=== PATIENT | male | born 1995 | race African-American/Black ===

== ENCOUNTER 2017-08-17 12:45 | Emergency (ER) | payer SELFPAY ==
[2017-08-17 12:53] VITALS: BP 130/63
[2017-08-17] MEDS ORDERED: NAPROXEN 250 MG TABLET PO ONE (13:21)
--- NOTE | 2017-08-17 13:28 | ER Document Report ---
ED General - General Chief Complaint: Toothache Stated Complaint: TOOTH PAIN Time Seen by Provider: 08/17/17 13:09 Notes: 21-year-old male here with complaints of right lower toothache ongoing for the past 1-2 months. The pain started when his filling fell out of his tooth he was eating something. He has not been taking anything for pain. He has not gone to see his dentist or any dentist about this in the 2 months that this is been going on. No fevers chills nausea vomiting. Still able to eat and drink without difficulty. No swelling. TRAVEL OUTSIDE OF THE [place] IN LAST 30 DAYS: No - Related Data Allergies/Adverse Reactions: No Known Allergies Allergy (Unverified 08/17/17 12:48) Past Medical History - Social History Smoking Status: Current Every Day Smoker Chew tobacco use (# tins/day): No Frequency of alcohol use: None Drug Abuse: None Family History: Reviewed & Not Pertinent Patient has suicidal ideation: No Patient has homicidal ideation: No Renal/ Medical History: Denies: Hx Peritoneal Dialysis Past Surgical History: Reports: Hx Orthopedic Surgery Review of Systems - Review of Systems Notes: See history of present illness for pertinent positive review of systems; otherwise all review of systems have been reviewed and are negative Physical Exam - Vital signs Vitals: Temp Pulse Resp BP Pulse Ox 97.9 F 52 L 16 130/63 H 100 08/17/17 12:49 08/17/17 12:49 08/17/17 12:49 08/17/17 12:49 08/17/17 12:49 - Notes Notes: PHYSICAL EXAMINATION: GENERAL: Well-appearing and in no acute distress. HEAD: Atraumatic, normocephalic. EYES: Pupils equal round and reactive to light, extraocular movements intact, sclera anicteric, conjunctiva are normal. ENT: nares patent, oropharynx clear without exudates. Moist mucous membranes. Tooth #29 with lingual half of tooth missing and dentin exposed without bleeding ; no lymphadenopathy or gingival swelling erythema induration fluctuance drainage NECK: Normal range of motion, supple without lymphadenopathy LUNGS: CTAB and equal. No wheezes rales or rhonchi. HEART: Regular rate and rhythm without murmurs EXTREMITIES: Normal range of motion, no pitting edema. No cyanosis. NEUROLOGICAL: Cranial nerves grossly intact. Normal sensory/motor exams. PSYCH: Normal mood, normal affect. SKIN: Warm, Dry, normal turgor, no rashes or lesions noted Course - Re-evaluation Re-evalutation: 08/17/17 13:25 MEDICAL DECISION MAKING: Concern for tooth that needs to be pulled or filling replaced I will give him a dose of naproxen here for pain control Will prescribe meloxicam and instructed follow-up with dentist next day or few Patient understands and agrees to the plan of care - Vital Signs Vital signs: Temp Pulse Resp BP Pulse Ox 97.9 F 52 L 16 130/63 H 100 08/17/17 12:49 08/17/17 12:49 08/17/17 12:49 08/17/17 12:49 08/17/17 12:49 Discharge - Discharge Clinical Impression: Toothache Condition: Good Disposition: HOME, SELF-CARE Instructions: Toothache ([facility]), [facility] Additional Instructions: You were seen in the emergency department at [facility]. Use the prescribed medication as needed for symptoms. Please followup with your primary dentist in the next few days for further management/evaluation. Please return to the emergency department for worsening of symptoms or any symptom that you deem to be concerning or life-threatening. Thank you for allowing us to be part of your care. Prescriptions: Meloxicam 7.5 mg PO DAILYP PRN #10 tablet PRN Reason:
== END 2017-08-17 13:33 | disposition home or self-care (01) ==
LOC: ER 12:45
DX: K08.89 Other specified disorders of teeth and supporting structures (principal); F17.200 Nicotine dependence, unspecified, uncomplicated
CPT/HCPCS: 99282